=== PATIENT | male | born 1965 | race Caucasian/White ===

== ENCOUNTER 2016-10-21 15:07 | Emergency (ER) | payer MEDICAID, OTHER ==
--- NOTE | 2016-10-21 15:18 | ER Document Report ---
ED Medical Screen (RME) - General Stated Complaint: DIZZY Notes: 51 yo male brought to ED by EMS for dizziness. hx/o stroke 6 mos ago with residual problems with equilibrium. BS 149. pt reports he couldnt remember his name earlier today. felt anxious, but feels better presently. no shortness of breath or chest pain. + headache. TRAVEL OUTSIDE OF THE [place] IN LAST 30 DAYS: No - Related Data Allergies/Adverse Reactions: Penicillins Allergy (Verified 01/05/15 16:40) Benzodiazepines Adverse Reaction (Verified 01/05/15 16:40) Past Medical History - Past Medical History Cardiac Medical History: Reports: Hx Hypertension Psychiatric Medical History: Reports: Hx Bipolar Disorder, Hx Depression Past Surgical History: Reports: Hx Orthopedic Surgery - R hand; R neck, Hx Vascular Surgery Physical Exam - Vital signs Vitals: Temp Pulse Resp BP Pulse Ox 98.3 F 81 18 126/91 H 93 10/21/16 15:45 10/21/16 15:45 10/21/16 15:45 10/21/16 15:45 10/21/16 15:45 Course - Vital Signs Vital signs: Temp Pulse Resp BP Pulse Ox 98.3 F 81 18 126/91 H 93 10/21/16 15:45 10/21/16 15:45 10/21/16 15:45 10/21/16 15:45 10/21/16 15:45
[2016-10-21 16:27] LABS: ABSOLUTE BASOPHILS # (AUTO) 0.1 10^3/uL (0.0-0.2); ABSOLUTE EOSINOPHILS # (AUTO) 0.1 10^3/uL (0.0-0.6); ABSOLUTE LYMPHOCYTES (AUTO) 2.4 10^3/uL (0.5-4.7); ABSOLUTE MONOCYTES (AUTO) 0.7 10^3/uL (0.1-1.4); ABSOLUTE NEUT (AUTO) 6.3 10^3/uL (1.7-8.2); BASOPHILS % (AUTO) 0.6 % (0-2); HEMATOCRIT 46.6 % (37.9-51.0); HEMOGLOBIN 15.7 g/dL (13.5-17.0); HGB HCT DIFFERENCE 0.5; LYMPHOCYTES % (AUTO) 25.2 % (13-45); MEAN CORPUSCULAR HEMOGLOBIN 29.6 pg (27.0-33.4); MEAN CORPUSCULAR HGB CONC 33.8 g/dL (32.0-36.0); MEAN CORPUSCULAR VOLUME 88 fl (80-97); MONOCYTES % (AUTO) 7.7 % (3-13); RED BLOOD COUNT 5.32 10^6/uL (4.35-5.55); SEGMENTED NEUTROPHILS % (AUTO) 65.5 % (42-78); WHITE BLOOD COUNT 9.7 10^3/uL (4.0-10.5)
[2016-10-21 16:38] LABS: ALANINE AMINOTRANSFERASE 78 U/L (21-72); ALBUMIN 4.7 g/dL (3.5-5.0); ALKALINE PHOSPHATASE 102 U/L (38-126); ANION GAP 15 (5-19); APPEARANCE,URINE CLEAR; ASPARTATE AMINO TRANSFERASE 55 U/L (17-59); BILIRUBIN,DIRECT 0.5 mg/dL (0.0-0.4); BILIRUBIN,TOTAL 0.8 mg/dL (0.2-1.3); BILIRUBIN,URINE NEGATIVE (NEGATIVE); BLOOD UREA NITROGEN 27 mg/dL (7-20); CARBON DIOXIDE 25 mmol/L (22-30); CHLORIDE 106 mmol/L (98-107); CREATININE RESULT 0.98 mg/dL (0.52-1.25); GLUCOSE 101 mg/dL (75-110); GLUCOSE, URINE NEGATIVE (NEGATIVE); KETONES,URINE NEGATIVE (NEGATIVE); LEUKOCYTE ESTERASE,URINE NEGATIVE (NEGATIVE); NITRITE,URINE NEGATIVE (NEGATIVE); POTASSIUM 5.1 mmol/L (3.6-5.0); PROTEIN,URINE 30 mg/dL (NEGATIVE); SODIUM 146.4 mmol/L (137-145); TOTAL PROTEIN 7.7 g/dL (6.3-8.2); URINE SPECIFIC GRAVITY 1.028
[2016-10-21 16:40] LABS: PROTHROMBIN TIME 12.1 SEC (11.4-15.4)
--- NOTE | 2016-10-21 19:10 | ER Document Report ---
ED Dizziness/Weakness - General Mode of Arrival: Ambulatory Information source: Patient TRAVEL OUTSIDE OF THE [place] IN LAST 30 DAYS: No - HPI Patient complains to provider of: Dizziness Onset: This morning Associated symptoms: Other - See above <JORI MARTINEZ - Last Filed: 10/21/16 21:29> <ANTELMO OLIVARES - Last Filed: 10/22/16 03:20> - General Chief Complaint: Dizziness Stated Complaint: DIZZY Notes: Patient is a 51 year old male, with a past medical history including CVA and depression, who presents to the emergency department complaining of dizziness. Patient complains of dizziness, headache, and difficulty speaking onset this morning. Patient reports he had an appointment at [facility] this afternoon at around 1400 and had trouble remember his name and answering questions and was sent to the ED. Patient describes the dizziness as spinning. Patient denies any difficulty moving or numbness. Patient is shaking and states that that is normal for him. Patient refers to [employer] as knowing his medical history and medications as he cannot recall them in the room. [facility] [phone] 24 hour line: (JORI MARTINEZ) - Related Data Allergies/Adverse Reactions: Penicillins Allergy (Verified 01/05/15 16:40) Benzodiazepines Adverse Reaction (Verified 01/05/15 16:40) Past Medical History - General Information source: Patient - Social History Smoking Status: Current Some Day Smoker Chew tobacco use (# tins/day): No Frequency of alcohol use: None Drug Abuse: None Family History: Reviewed & Not Pertinent Patient has suicidal ideation: No Patient has homicidal ideation: No - Past Medical History Cardiac Medical History: Reports: Hx Hypertension Neurological Medical History: Reports: Hx Cerebrovascular Accident Psychiatric Medical History: Reports: Hx Bipolar Disorder, Hx Depression Past Surgical History: Reports: Hx Orthopedic Surgery - R hand; R neck, Hx Vascular Surgery <JORI MARTINEZ - Last Filed: 10/21/16 21:29> Review of Systems - Review of Systems Constitutional: No symptoms reported EENT: No symptoms reported Cardiovascular: See HPI, Dizziness Respiratory: No symptoms reported Gastrointestinal: No symptoms reported Genitourinary: No symptoms reported Male Genitourinary: No symptoms reported Musculoskeletal: No symptoms reported Skin: No symptoms reported Hematologic/Lymphatic: No symptoms reported Neurological/Psychological: See HPI, Speech impairment -: Yes All other systems reviewed and negative <JORI MARTINEZ - Last Filed: 10/21/16 21:29> Physical Exam - Vital signs Interpretation: Normal - General General appearance: Alert, Other - Shaky - HEENT Head: Normocephalic, Atraumatic Mucous membranes: Dry - Respiratory Respiratory status: No respiratory distress Chest status: Nontender Breath sounds: Normal Chest palpation: Normal - Cardiovascular Rhythm: Regular Heart sounds: Normal auscultation Murmur: No - Back Back: Normal, Nontender - Extremities General upper extremity: Normal inspection General lower extremity: Normal inspection - Neurological Neuro grossly intact: Yes Cognition: Normal Orientation: AAOx4 Kobi Coma Scale Eye Opening: Spontaneous [place] Coma Scale Verbal: Oriented Kobi Coma Scale Motor: Obeys Commands [place] Coma Scale Total: 15 Speech: Normal Motor strength normal: LUE, RUE, LLE, RLE - Psychological Associated symptoms: Anxious, Other - Odd affect - Skin Skin Temperature: Warm Skin Moisture: Dry Skin Color: Normal <JORI MARTINEZ - Last Filed: 10/21/16 21:29> Course - Laboratory Result Diagrams: 10/21/16 16:10 10/21/16 16:10 <JORI MARTINEZ - Last Filed: 10/21/16 21:29> - Laboratory Result Diagrams: 10/21/16 16:10 10/21/16 16:10 <ANTELMO OLIVARES - Last Filed: 10/22/16 03:20> - Re-evaluation Re-evalutation: 10/21/16 19:36 Patient had initially come in for not feeling right. Patient was noted to be anxious. Patient pulled out a knife while he was sitting in a zayas bed and began cutting his arm open. Security was called. Knife was taken from patient. Patient was taken to a safe room and will be placed on involuntary commitment paperwork. Patient will not make eye contact and was holding his head initially. Patient then calmed down and was able to have a conversation. 10/21/16 22:17 Patient is feeling better after Geodon and Zyprexa. He is more calm. Asking for medication for sleep. He will be given Seroquel. Again, patient will be placed on involuntary commitment paperwork and held for mental health evaluation the morning. Medically stable otherwise. (WODOWSKI,ANTELMO RICO) - Vital Signs Vital signs: Temp Pulse Resp BP Pulse Ox 98.3 F 81 18 126/91 H 93 10/21/16 15:45 10/21/16 15:45 10/21/16 15:45 10/21/16 15:45 10/21/16 15:45 - Laboratory Laboratory results interpreted by me: 10/21/16 10/21/16 10/21/16 16:10 16:10 16:10 Sodium 146.4 H Potassium 5.1 H BUN 27 H Direct Bilirubin 0.5 H ALT 78 H Creatine Kinase 478 H Urine Protein 30 H Urine Urobilinogen 4.0 H Salicylates Acetaminophen 10/21/16 16:10 Sodium Potassium BUN Direct Bilirubin ALT Creatine Kinase Urine Protein Urine Urobilinogen Salicylates < 1.0 L Acetaminophen < 10 L Procedures - Laceration/Wound Repair Left Arm Wound length (cm): 3 Wound's Depth, Shape: Superficial, Linear Anesthetic type: 1% Lidocaine Wound explored: Clean Wound Repaired With: Dermabond Layer Closure?: No Post-procedure wound care: Sterile dressing applied Post-procedure NV exam normal: Yes Complications: No <ANTELMO OLIVARES - Last Filed: 10/22/16 03:20> Discharge <JORI MARTINEZ - Last Filed: 10/21/16 21:29> <ANTELMO OLIVARES - Last Filed: 10/22/16 03:20> - Discharge Clinical Impression: Suicidal ideation, Bipolar 1 disorder Self-inflicted laceration of wrist Qualifiers: Encounter type: initial encounter Laterality: left Qualified Code(s): S61.512A - Laceration without foreign body of left wrist, initial encounter Condition: Stable Disposition: PSYCH HOSP/UNIT Scribe Attestation: 10/22/16 03:20 I personally performed the services described in the documentation, reviewed and edited the documentation which was dictated to the scribe in my presence, and it accurately records my words and actions. (ANTELMO OLIVARES) Scribe Documentation - Scribe Written by Scribe:: amy Sosa, 10/21/16, 2130 acting as scribe for :: Maxx <JORI MARTINEZ - Last Filed: 10/21/16 21:29>
[2016-10-21] MEDS ORDERED: OLANZAPINE 5 MG TAB.RAPDIS PO ONE (19:11)
[2016-10-21] MEDS ORDERED: 1/2 NORMAL SALINE 1,000 ML IV ONE (19:12)
[2016-10-21] MEDS ORDERED: ZIPRASIDONE MESYLATE INJ/PF 20 MG SDV IM ONE (19:35)
[2016-10-21 20:04] LABS: CREATINE KINASE MB 2.61 ng/mL (<4.55); TROPONIN I < 0.012 ng/mL
[2016-10-21 20:26] LABS: ALCOHOL < 10 mg/dL (NONE DETECTED)
[2016-10-21] MEDS ORDERED: QUETIAPINE FUMARATE 100 MG TABLET PO ONE (21:45)
--- NOTE | 2016-10-22 08:06 | EKG REPORT ---
SEVERITY:- BORDERLINE ECG - SINUS RHYTHM BORDERLINE T ABNORMALITIES, ANTERIOR LEADS : Confirmed by: Parish Wilson MD 22-Oct-2016 08:05:30
[2016-10-22] MEDS ORDERED: RISPERIDONE 0.25 MG TABLET PO ONE (09:00)
[2016-10-22] MEDS ORDERED: BUSPIRONE HCL 10 MG TABLET PO ONE (09:30)
--- NOTE | 2016-10-22 09:56 | ER Document Report ---
Doctor's Note Notes: 10/22/16 09:53 This is a 51-year-old male with a history of bipolar disorder and prior CVA. His chart was reviewed. He was referred to the ER from urgent care after he appeared confused and could not recall his name. Apparently he sustained a self -inflicted superficial laceration to his left wrist here in the department as he was awaiting evaluation. He is currently under IVC paperwork. This morning he is calm during my interview, although somewhat angry that he is here and requesting to speak with his mental health team at [facility]. He does not currently endorse any thoughts of hurting himself or others. His medication list includes Depakote for bipolar. I will add on a depakote level. Awaiting further recommendations from psychiatry team. Pt medically stable at this point. 10/22/16 19:45 Pt re-examined and psychiatry note reviewed. Patient is now cooperative and remorseful of his actions earlier. He is plugged into them at mental health system and has multiple resources available to him as documented by mental health note. He is very comfortable with discharge this evening and states that he has no thoughts of harming himself or anyone else. He will follow up with his primary care physician in with mental health as directed. Should he develop worsening symptoms or concerns he agrees to call 911 or return to the emergency department. At this point he is cleared by psychiatry and medically stable for discharge.
[2016-10-22] MEDS ORDERED: DIVALPROEX SODIUM 500 MG TAB.SR.24H PO SCH (10:00)
--- NOTE | 2016-10-22 10:10 | PSYCHOLOGICAL NOTE ---
Psych Note - Psych Note Psych Note: Patient is a 51 year old male, with a past medical history including CVA and depression, who presents to the emergency department complaining of dizziness. Patient complains of dizziness, headache, and difficulty speaking onset this morning. [facility] and had trouble remember his name and answering questions and was sent to the ED. Patient had initially come in for not feeling right. Patient was noted to be anxious. Patient pulled out a knife while he was sitting in a zayas bed and began cutting his arm open. Security was called. Knife was taken from patient. Patient was taken to a safe room and will be placed on involuntary commitment paperwork. Patient will not make eye contact and was holding his head initially. Patient is alert and orientated to person place time and circumstance. Mood is irritable with labile affect. Patient endorses suicidal ideation; clinician notes patient blames hospital staff for his self-harm. Patient denies homicidal ideation. Patient denies auditory and visual hallucinations; no delusions are noted. Thought process is currently organized and linear. Thought content is guarded. Conversational speech is observed to be variable with yelling at times. Eye contact is poor. Intellectual abilities appear to be within average range. Attention and concentration are poor. Insight, judgment, impulse control are poor. Clinician spoke with Miles, the patient's HAND GLUER AND SLICER worker through [facility]. He disclosed the patient was approved just two days ago for the Community living program. He continued to state that he has not had the opportunity to meet with the patient face to face but has spoken to him on the phone. He continued to disclose that he was going to try and see him today until he found out that he was at the hospital. He states that the patient will be assessed to identify if he need an ACT Team and would like to get him involved with a psychosocial program. Second attempt Patient states that he cut his arm because after 5 hours of people talking about him and he could not take it anymore. He continued to state that he is sorry for the way he acted to the clinician earlier. He states it is not like him, but his head just makes it hard. He disclosed concern that people are shooting at him at home, but doesn't know who they are. The patient states that he does not want to hurt himself and he did it yesterday because it made him feel better since he did not want to hurt anyone else. Patient confirms that he has a home and feels safe there. Clinician asked the patient why he punched the wall and he stated it was because he felt like he was back in alf and no one was listening to him so he got frustrated. The clinician and patient discussed his services with A for the transition to Community Living Program and the possibility of psychosocial rehabilitation. The patient states that he thinks it will be better when he is able to become more involved in the programs but disclosed that it is hard to wait. Clinician confirmed that patient identified his home as safe and patient stated yes unless "you can buy me a ticket to [place]." Patient is alert and oriented to person, place, time and circumstance. Mood is dysphoric with calm affect. Patient denies suicidal ideation however endorse self harm. Patient denies homicidal ideation. Patient denies auditory and visual hallucinations; some persecutory delusions are noted. Thought process is organized and linear. Thought content waxes and wanes on current delusion. Conversational speech is within normal rate tone and prosody. Eye contact was well maintained. Attention and concentration are good. Insight, judgment and impulse control are fair. 799.59 (R41.9) Unspecified Neurocognitive disorder as evidenced by 10/21/[address] indicating prominent ventricles, an old infarct on the left frontal lobe , and area of low density in the white matter most likely due to chronic micro- vascular ischemic change, and age related involutional change in the extraaxial spaces. ' 292.9 (F19.99) Unspecified substance related disorder per history Impression\\plan: Patient has lived institutionalized since the age of 20 and had approximately 6 months outside of a alf and / or psychiatric facility. Patient admits to manipulating the mental health system to meet his needs to include medications and housing. He is allergic to Seroquel, benzodiazepines and ambien, also trazadone and tramadol. The results of ingestion include severe agitation, increased impulsivity, hives, and elevated liver and kidney enzymes. Patient has a history of multiple TBI's which have resulted in sensitives to disinhibiting medications and some antipsychotic medications. 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 Patient also attempted to engage in a verbal altercation with staff members and threatened physical action. After medication changes were conducted through the behavioral health team recommendations, the patient began to actively engage with the clinician and apologized for his earlier behavior. The clinician notes that the patient has had multiple traumatic brain injuries in the past and about 6 months ago suffered from a stroke. Clinician also notes that on 12/20/2014; further research revealed Patient has been inpatient psychiatric hospitalization basically from 08/2012 thru 08/2014 with only a few months outside of a hospital. Patient acknowledged this was true and also reported he had been incarcerated at the age of 20 for 25 years to life for breaking and entering, larceny, gun possession, etc, and was released in 2011. He indicated it was at this time he began to access the mental health community because he was homeless. Patient also admitted he learned how to manipulate while incarcerated to get what he needed to survive. Additionally, he indicated that no medication works for him but acknowledged he was not honest with providers about his heroin, cocaine, and opiate addition, thereby likely sabotaging any psychotropic medication attempts. At this time it is believed the patient is back to his baseline and is psychiatrically cleared for discharge. Patient denies suicidal and homicidal ideation and was able to identify his self harm was not an attempt to kill himself but to feel better and release the negative emotions. The patient does not meet IVC criteria for [place] GS 122 C and he already has a higher level of care in place with [facility]. Patient is psychiatrically clear for discharge. Attending physician is in agreement with recommendations and disposition.
[2016-10-22 10:55] LABS: URINE BARBITURATES SCREEN NEGATIVE; URINE METHADONE SCREEN NEGATIVE; URINE OPIATES LOW NEGATIVE; URINE PHENCYCLIDINE SCREEN NEGATIVE
[2016-10-22] MEDS ORDERED: RISPERIDONE 0.25 MG TABLET PO SCH (15:00)
[2016-10-22] MEDS ORDERED: BUSPIRONE HCL 10 MG TABLET PO SCH (18:00)
[2016-10-22 21:13] VITALS: BP 153/92
[2016-10-23] MEDS ORDERED: BUSPIRONE HCL 10 MG TABLET PO SCH (08:00)
== END 2016-10-22 21:13 | disposition home or self-care (01) ==
LOC: ER 15:07
DX: F31.9 Bipolar disorder, unspecified (principal); S61.512A Laceration without foreign body of left wrist, initial encounter; X78.1XXA Intentional self-harm by knife, initial encounter; Y93.89 Activity, other specified; Y92.238 Other place in hospital as the place of occurrence of the external cause; F41.9 Anxiety disorder, unspecified; R42 Dizziness and giddiness; R47.9 Unspecified speech disturbances; R41.3 Other amnesia; R29.818 Other symptoms and signs involving the nervous system; R51 Headache; I10 Essential (primary) hypertension; F17.200 Nicotine dependence, unspecified, uncomplicated; Z86.73 Personal history of transient ischemic attack (TIA), and cerebral infarction without residual deficits; Z88.0 Allergy status to penicillin; Z79.899 Other long term (current) drug therapy
CPT/HCPCS: 93005; 99285; 96372; 96360; 36415; 82553; 80307 ×4; 82550; 84443; 85025; 85610; 80053; 81001; 84484; 80164; 70450; 93010; J3490 ×5; J3486

== ENCOUNTER 2016-10-23 10:52 | Emergency (ER) | payer MEDICAID ==
--- NOTE | 2016-10-23 12:04 | ER Document Report ---
ED General - General Chief Complaint: Psych Problem Stated Complaint: SUICIDAL IDEATION Mode of Arrival: Medic Information source: Patient Notes: 51-year-old male history of depression presents with complaints of suicidal ideations. Patient notes he always is depressed. He cut himself superficially about 2 days ago. Patient was evaluated at that time. Patient notes today he believes someone was running from trailer to tremor yelling that he had a warrant TRAVEL OUTSIDE OF THE [place] IN LAST 30 DAYS: No - HPI Onset: Other Onset/Duration: Persistent Quality of pain: No pain Severity: Mild Pain Level: Denies Associated symptoms: Other Exacerbated by: Denies Relieved by: Denies Similar symptoms previously: Yes Recently seen / treated by doctor: Yes - Related Data Allergies/Adverse Reactions: Penicillins Allergy (Verified 01/05/15 16:40) Benzodiazepines Adverse Reaction (Verified 01/05/15 16:40) Past Medical History - Social History Smoking Status: Never Smoker Frequency of alcohol use: None Drug Abuse: None Family History: Reviewed & Not Pertinent Patient has suicidal ideation: Yes Patient has homicidal ideation: No - Past Medical History Cardiac Medical History: Reports: Hx Hypertension Neurological Medical History: Reports: Hx Cerebrovascular Accident Renal/ Medical History: Denies: Hx Peritoneal Dialysis Psychiatric Medical History: Reports: Hx Bipolar Disorder, Hx Depression Past Surgical History: Reports: Hx Orthopedic Surgery - R hand; R neck, Hx Vascular Surgery Review of Systems - Review of Systems Notes: REVIEW OF SYSTEMS: CONSTITUTIONAL : Denies fever, chills, or sweats. Denies recent illness. EENT: Denies eye, ear, throat, or mouth pain or symptoms. Denies nasal or sinus congestion or discharge. Denies throat, tongue, or mouth swelling or difficulty swallowing. CARDIOVASCULAR: Denies chest pain. Denies palpitations or racing or irregular heart beat. Denies ankle edema. RESPIRATORY: Denies cough, cold, or chest congestion. Denies shortness of breath, difficulty breathing, or wheezing. GASTROINTESTINAL: Denies abdominal pain or distention. Denies nausea, vomiting , or diarrhea. Denies blood in vomitus, stools, or per rectum. Denies black, tarry stools. Denies constipation. GENITOURINARY: Denies difficulty urinating, painful urination, burning, frequency, blood in urine, or discharge. MUSCULOSKELETAL: Denies back or neck pain or stiffness. Denies joint pain or swelling. SKIN: Denies rash, lesions or sores. HEMATOLOGIC : Denies easy bruising or bleeding. LYMPHATIC: Denies swollen, enlarged glands. NEUROLOGICAL: Denies confusion or altered mental status. Denies passing out or loss of consciousness. Denies dizziness or lightheadedness. Denies headache. Denies weakness or paralysis or loss of use of either side. Denies problems with gait or speech. Denies sensory loss, numbness, or tingling. Denies seizures. PSYCHIATRIC: Admits to depression suicidal ideations without a plan ALL OTHER SYSTEMS REVIEWED AND NEGATIVE. Dictation was performed using [facility] EHR voice recognition software PHYSICAL EXAMINATION: GENERAL: Well-appearing, well-nourished and in no acute distress. HEAD: Atraumatic, normocephalic. EYES: Pupils equal round and reactive to light, extraocular movements intact, sclera anicteric, conjunctiva are normal. ENT: Nares patent, oropharynx clear without exudates. Moist mucous membranes. NECK: Normal range of motion, supple without lymphadenopathy LUNGS: Breath sounds clear to auscultation bilaterally and equal. No wheezes rales or rhonchi. HEART: Regular rate and rhythm without murmurs ABDOMEN: Soft, nontender, nondistended abdomen. No guarding, no rebound. No masses appreciated. Musculoskeletal: Normal range of motion, no pitting or edema. No cyanosis. NEUROLOGICAL: Cranial nerves grossly intact. Normal speech, normal gait. Normal sensory, motor exams PSYCH: Normal mood, normal affect. SKIN: Left ventral surface arm superficial lacerations well healing no secondary sign of infection Physical Exam - Vital signs Vitals: Temp Pulse Resp BP Pulse Ox 98.3 F 71 16 136/98 H 97 10/23/16 11:41 10/23/16 11:41 10/23/16 11:41 10/23/16 11:41 10/23/16 11:41 Course - Re-evaluation Re-evalutation: 10/23/16 13:46 Patient is stable at this time, does not have an actually life threatening issues, his supportive employment case manager is here now, will change psych meds After performing a Medical Screening Examination, I estimate there is LOW risk for ACUTE CORONARY SYNDROME, RESPIRATORY FAILURE, SEPSIS OR MENINGITIS, thus I consider the discharge disposition reasonable. The patient and I have discussed the diagnosis and risks, and we agree with discharging home with close follow- up. We also discussed returning to the Emergency Department immediately if new or worsening symptoms occur. We have discussed the symptoms which are most concerning (e.g., changing or worsening pain, trouble swallowing or breathing, neck stiffness, fever) that necessitate immediate return. - Vital Signs Vital signs: Temp Pulse Resp BP Pulse Ox 98.3 F 71 16 136/98 H 97 10/23/16 11:41 10/23/16 11:41 10/23/16 11:41 10/23/16 11:41 10/23/16 11:41 - Laboratory Result Diagrams: 10/23/16 11:50 10/23/16 11:50 Laboratory results interpreted by me: 10/23/16 11:50 BUN 26 H ALT 93 H Salicylates < 1.0 L Acetaminophen < 10 L - EKG Interpretation by Me EKG shows normal: Sinus rhythm, Jerome, Intervals, QRS Complexes Discharge - Discharge Clinical Impression: Bipolar 1 disorder, Suicidal ideation Self-inflicted laceration of wrist Qualifiers: Encounter type: initial encounter Laterality: left Qualified Code(s): S61.512A - Laceration without foreign body of left wrist, initial encounter Condition: Stable Disposition: HOME, SELF-CARE Additional Instructions: Please follow-up with the care plan provided to you by your patient accounts manager Return immediately if there are any other concerns Prescriptions: Buspirone HCl [Buspar 10 mg Tablet] 10 mg PO QHS #7 tablet Buspirone HCl [Buspar 5 mg Tablet] 1 tab PO DAILY #7 tab Divalproex Sodium [Depakote ER 500 mg Tab.sr] 500 mg PO Q12 #14 tab.sr.24h Risperidone [Risperdal 0.25 Mg Tablet] 0.25 mg PO BID #14 tablet
[2016-10-23 12:08] LABS: ABSOLUTE EOSINOPHILS # (AUTO) 0.1 10^3/uL (0.0-0.6); ABSOLUTE MONOCYTES (AUTO) 0.6 10^3/uL (0.1-1.4); ABSOLUTE NEUT (AUTO) 5.3 10^3/uL (1.7-8.2); EOSINOPHILS % (AUTO) 0.8 % (0-6); HEMOGLOBIN 15.4 g/dL (13.5-17.0); MEAN CORPUSCULAR VOLUME 87 fl (80-97); WHITE BLOOD COUNT 7.9 10^3/uL (4.0-10.5)
[2016-10-23 12:13] LABS: ABSOLUTE BASOPHILS # (AUTO) 0.1 10^3/uL (0.0-0.2); BASOPHILS % (AUTO) 0.8 % (0-2); HGB HCT DIFFERENCE 2.2; LYMPHOCYTES % (AUTO) 24.7 % (13-45); MEAN CORPUSCULAR HEMOGLOBIN 30.3 pg (27.0-33.4); MEAN CORPUSCULAR HGB CONC 34.9 g/dL (32.0-36.0); RED BLOOD COUNT 5.07 10^6/uL (4.35-5.55); RED CELL DISTRIBUTION WIDTH 13.1 % (11.5-14.0); SEGMENTED NEUTROPHILS % (AUTO) 66.7 % (42-78)
[2016-10-23 12:29] LABS: ALANINE AMINOTRANSFERASE 93 U/L (21-72); ALBUMIN 4.4 g/dL (3.5-5.0); ALKALINE PHOSPHATASE 95 U/L (38-126); ANION GAP 14 (5-19); ASPARTATE AMINO TRANSFERASE 56 U/L (17-59); BILIRUBIN,DIRECT 0.4 mg/dL (0.0-0.4); BILIRUBIN,TOTAL 0.9 mg/dL (0.2-1.3); BLOOD UREA NITROGEN 26 mg/dL (7-20); CALCIUM 9.8 mg/dL (8.4-10.2); CARBON DIOXIDE 26 mmol/L (22-30); CHLORIDE 104 mmol/L (98-107); GLUCOSE 100 mg/dL (75-110); POTASSIUM 4.5 mmol/L (3.6-5.0); SODIUM 144.2 mmol/L (137-145); TOTAL PROTEIN 7.6 g/dL (6.3-8.2)
[2016-10-23 12:30] LABS: ALCOHOL < 10 mg/dL (NONE DETECTED)
--- NOTE | 2016-10-23 13:27 | PSYCHOLOGICAL NOTE ---
Psych Note - Psych Note Psych Note: Patient presented to [facility] ED with history of depression presents with complaints of suicidal ideations. Patient notes he always is depressed. He cut himself superficially about 2 days ago. Patient was evaluated at that time. Patient notes today he believes someone was running from trailer to tremor yelling that he had a warrant. Patient states that he is scared. The neighbors were talking about him and saying they are going to get him. When asked why the patient came to the ED instead of calling the telex operator if people were coming for him, he stated that he did not want to make it worse. The patient stated that he wanted someone to talk too because "a lot" is going on. Patient is alert and orientated to person, place, time and circumstance. Mood is dysphoric with tearful affect. Patient endorses suicidal ideation, denies homicidal ideation. Patient denies auditory and visual hallucinations; persecutory delusions are verbalized. Thought process is organized and linear. Conversational speech is within normal rate, tone and prosody. Eye contact was well maintained. Intellectual abilities appear to be average range. attention and concentration are good. Insight judgment and impulse control are poor. 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 ' 292.9 (F19.99) Unspecified substance related disorder per history Impression/plan: Patient is psychiatrically clear for discharge. Patient does not meet IVC criteria per [place] GS 122 C. Patient states that he wants to talk to someone because he is scared. Patient was seen yesterday impression has not changed- see attached impression/plan. Impression\\plan: Patient has lived institutionalized since the age of 20 and had approximately 6 months outside of a senior care and / or psychiatric facility. Patient admits to manipulating the mental health system to meet his needs to include medications and housing. He is allergic to Seroquel, benzodiazepines and ambien, also trazadone and tramadol. The results of ingestion include severe agitation, increased impulsivity, hives, and elevated liver and kidney enzymes. Patient has a history of multiple TBI's which have resulted in sensitives to disinhibiting medications and some antipsychotic medications. Patient originally refused to provide background information stating he just wants to speak with his mental health provider Fam and is senior python developer. Patient also attempted to engage in a verbal altercation with staff members and threatened physical action. After medication changes were conducted through the behavioral health team recommendations, the patient began to actively engage with the clinician and apologized for his earlier behavior. The clinician notes that the patient has had multiple traumatic brain injuries in the past and about 6 months ago suffered from a stroke. Clinician also notes that on 12/20/2014; further research revealed Patient has been inpatient psychiatric hospitalization basically from 08/2012 thru 08/2014 with only a few months outside of a hospital. Patient acknowledged this was true and also reported he had been incarcerated at the age of 20 for 25 years to life for breaking and entering, larceny, gun possession, etc, and was released in 2011. He indicated it was at this time he began to access the mental health community because he was homeless. Patient also admitted he learned how to manipulate while incarcerated to get what he needed to survive. Additionally, he indicated that no medication works for him but acknowledged he was not honest with providers about his heroin , cocaine, and opiate addition, thereby likely sabotaging any psychotropic medication attempts. At this time it is believed the patient is back to his baseline and is psychiatrically cleared for discharge. Patient denies suicidal and homicidal ideation and was able to identify his self harm was not an attempt to kill himself but to feel better and release the negative emotions. The patient does not meet IVC criteria for [place] GS 122 C and he already has a higher level of care in place with [facility]. Patient is psychiatrically clear for discharge. Attending physician is in agreement with recommendations and disposition.
[2016-10-23 14:09] VITALS: BP 133/90
--- NOTE | 2016-10-23 18:09 | EKG REPORT ---
SEVERITY:- NORMAL ECG - SINUS RHYTHM : Confirmed by: Parish Wilson MD 23-Oct-2016 18:09:33
== END 2016-10-23 14:10 | disposition home or self-care (01) ==
LOC: ER 10:52
DX: S61.512A Laceration without foreign body of left wrist, initial encounter (principal); F31.9 Bipolar disorder, unspecified; F32.9 Major depressive disorder, single episode, unspecified; X83.8XXA Intentional self-harm by other specified means, initial encounter
CPT/HCPCS: 36415; 80053; 80307; 85025; 93005; 93010; 99285